=== PATIENT | male | born 1965 | race Caucasian/White ===

== ENCOUNTER → 2024-02-23 09:07 | Outpatient (REF) | payer OTHER, SELFPAY | LOC: RAD 09:07 | PROVIDERS: ATTENDING PHYSICIAN Registered Nurse | DX: I77.0 Arteriovenous fistula, acquired (principal); I77.9 Disorder of arteries and arterioles, unspecified; I65.23 Occlusion and stenosis of bilateral carotid arteries | CPT/HCPCS: 93880; 93922; 93925; 93990 ==

== ENCOUNTER 2024-03-29 11:34 | Inpatient (IN) | payer MEDICARE, SELFPAY ==
[2024-03-22 09:11] VITALS: BMI 40.6
[2024-03-22 09:51] LABS: % Basophils 0.9 % (0-2); % Eosinophils 2.8 % (0-6); % Immature Granulocytes 0.6 % (0-0.5); % Lymphocytes 19.9 % (20.5-51.1); % Monocytes 9.1 % (1.7-9.3); % Neutrophils 66.7 % (42.2-75.2); Absolute Basophils 0.1 10^3/uL (0-0.2); Absolute Eosinophils 0.2 10^3/uL (0-0.7); Absolute Lymphocytes 1.3 10^3/uL (1.2-3.4); Absolute Monocytes 0.6 10^3/uL (0.1-0.6); Absolute Neutrophils 4.4 10^3/uL (1.4-6.5); Hematocrit 34.7 % (39.0-52.0); Mean Corp Hgb Conc. 34.6 g/dL (33.0-37.0); Mean Corpuscular Hgb 30.2 pg (27.0-31.0); Mean Corpuscular Volume 87.4 fL (80.0-94.0); Mean Platelet Volume 9.3 fL (7.4-10.4); Nucleated Red Blood Cells % 0 % (-); Platelet Count 242 10^3/uL (130-400); Red Blood Cell Count 3.97 10^6/uL (4.70-6.10); Red Cell Dist. Width 14.8 % (11.5-14.5); White Blood Cell Count 6.7 10^3/uL (4.8-10.8)
[2024-03-22 10:02] LABS: INR 1.18; PT 14.9 Sec (11.4-14.6)
[2024-03-22 10:43] LABS: Blood Urea Nitrogen 44 mg/dl (9-20); Calcium 8.9 mg/dl (8.4-10.2); Carbon Dioxide 28 mmol/L (22-30); Chloride 93 mmol/L (98-107); Estimated Creatinine Clearance 16 ml/min; Glucose 122 mg/dl (70-99); Potassium 4.5 mmol/L (3.5-5.1); Sodium 133 mmol/L (135-145); eGFR 9.84
[2024-03-29] VITALS (17 sets, daily range): BP systolic 103–178; BP diastolic 60–115; BMI 40.5
[2024-03-29] MEDS: PERIDEX 0.12% ORAL RINSE 15 ML PO (07:06)
[2024-03-29] MEDS: NSS 500 IV (07:06)
[2024-03-29] MEDS: BACTROBAN NASAL 1 GRAM NASAL (07:06)
[2024-03-29 07:14] LABS: Glucose - Point of Care 116 mg/dl (70-99)
--- NOTE | 2024-03-29 08:20 | W.SUR.PREOP ---
Pre-Operative Surgical Note
-
I have examined this patient prior to the performance of the scheduled procedure.
The patient's condition is unchanged from the time of the current History and
Physical and the patient is able to undergo the scheduled procedure.
[2024-03-29] MEDS: DILAUDID 0.25 MG IV ×2 (11:30→11:50)
[2024-03-29 11:31] LABS: Glucose - Point of Care 148 mg/dl (70-99)
--- NOTE | 2024-03-29 11:43 | W.IMMPOSTOP ---
Surgical Immed Post Op Note
-
Primary Surgeon: Jamie
Assisting Surgeon: Forrest
Pre-op Diagnosis: Aneurysmal AV fistula
Post-op Diagnosis: Aneurysmal AV fistula
Procedure Performed: Resection of aneurysmal AV fistula and revision with interposition graft ([place] AcuSeal)
Anesthesia Type: General
Specimen / Cultures: Aneurysmal AVF
Estimated Blood Loss: 200 cc
Complications: None
Operative Findings: Aneurysmal AVF resected. Thrill in graft at completion of case.
--- NOTE | 2024-03-29 12:04 | OR.RPT ---
Operative Report
Operative Report
Date of Operation: 03/29/2024
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
Procedure:
1.) Resection of right upper arm aneurysmal arteriovenous fistula
2.) Revision of right upper arm arteriovenous fistula with interposition graft ([place] AcuSeal)
Surgeon: Issac Ayala III, MD
Facilities Clerk: Tyshawn Clayton MD PGY-6
Anesthesia: General
Complications: None
Estimated Blood Loss: 200 cc
History and Indications for Procedure: 59-year-old male with end-stage renal disease requiring hemodialysis. He has a right upper extremity brachiocephalic AV fistula that was created elsewhere. The fistula was aneurysmal with overlying skin
thinning and ulceration. I brought him to the operating room for resection of the aneurysmal component and revision.
Procedure in Detail: Lukas Orr was correctly identified and placed supine on the operating table. His right arm was abducted 90 degrees on an arm table. An intraoperative ultrasound was performed on the right upper extremity identifying the
aneurysmal component of the brachiocephalic arteriovenous fistula. The proximal portion of the vein adjacent to the arteriovenous anastomosis was nonaneurysmal and was marked. The more distal cephalic vein in the upper arm was also not aneurysmal
and was marked. An appropriate elliptical incision was then marked at the skin to include the aneurysm and overlying abnormal skin. After adequate induction of anesthesia the right hand and upper extremity was prepped and draped in the usual
sterile fashion. He received preoperative antibiotics. A timeout procedure was performed with the nursing and anesthesia staff confirming the patient's identity as well as the nature and laterality of the procedure.
An incision was made through the skin [place] over the aneurysmal component of the right upper extremity arteriovenous fistula. With electrocautery and careful sharp dissection we identified the proximal portion of the fistula, arteriovenous
anastomosis as well as the proximal and distal brachial artery. Proximal and distal control on the brachial artery was obtained with vessel loops.
We then continued dissection through the entire elliptical incision. This was done with sharp dissection and electrocautery. The aneurysmal portion of the fistula was circumferentially exposed and pulled up like a bucket handle. The nonaneurysmal
distal outflow vein was identified and distal control obtained with a vessel loop.
A gentle curved tunnel was created through the lateral subcutaneous tissue. A [place] AcuSeal graft was brought through the tunnel keeping proper orientation with the blue lópez on the graft. The graft was cut appropriately so that each end was 7 mm
diameter. The patient was systemically heparinized. The distal anastomosis was performed first. The vessel loops on the brachial artery were secured. A vascular clamp was placed on the outflow vein distally. The distal vein was transected
beyond the aneurysmal segment. An end-to-end anastomosis was created to the distal outflow vein using a running 6-0 Prolene suture. The proximal portion of the vein was also transected proximal to the aneurysmal segment. The AcuSeal graft was
shortened appropriately. An end-to-end anastomosis was created to the proximal portion of the vein using a running 6-0 Prolene suture. Prior to the completion of the anastomosis the vessel loops on the brachial artery were temporarily released.
The area under the anastomosis and into the graft was flushed with heparinized saline solution. The anastomosis was completed. The vessel loops and the distal clamp were released. There was a excellent thrill easily palpable within the graft and
distal outflow vein. Both suture lines were closely inspected for hemostasis which was achieved.
Protamine was administered. The wound was irrigated with copious amounts of warm saline solution. Hemostasis was achieved in the wound bed. The wound was then closed in layers and sterile dressings were applied. The course of the AcuSeal graft
in the upper arm was marked at the skin level.
The patient tolerated the procedure well was taken to the recovery room in good condition.
Attestation: I was present and responsible for the entire procedure
Signed:
Issac Ayala III, MD
[facility]
[phone] (cell)
--- NOTE | 2024-03-29 14:00 | PTCARENOTE ---
Pt received from the PACU via bed. Transport was w/o incident. Pt is AAOx3, HRR, lungs are clear, resp. easy. Pt's right arm with Revised AV fistula, incision intact. Fistula with a Positive Bruit and Thrill. Pt able to move arm, wiggle fingers.
Radial pulse strong and positive. VSS, Pt is afebrile. Pt instructed on plan of care. Pt refusing to have Accuchecks performed and currently is demanding a regular diet be ordered. Pt's current ordered diet is 2000cal ada renal diet. Attending MD
notified of Pt's demands. Pt verbalized understanding of his plan of care. Call griffin is within reach.
.
--- NOTE | 2024-03-29 15:34 | W.CON.NEPH ---
Consultation
-
Date/Time Consultation Requested: 03/29/2024 11 AM
Date/Time Consultation Performed: 03/29/2024 330 pm
Requesting Provider: Dr. Ayala
Performing Provider: Dr. Dahl
Reason for Consultation: End-stage renal disease
Medical History
-
Chief Complaint: ESRD
History of Present Illness:
Patient is a 59-year-old male with a past medical history of end-stage renal disease who dialyzes Monday and Saturdays at [facility]. He has been on dialysis for 7 years in the setting of his diabetic nephropathy. His dry
weight is 115.5 kg and states that he often goes UF's as high as 4-1/2 kg. His right upper extremity AV fistula has been operational for 7 years. He has a history of diabetes and is maintained on glipizide. His diabetes complications include
neuropathy retinopathy and nephropathy. He is maintained on sevelamer for his hyperphosphatemia and his hypertension has been managed on the combination of hydralazine carvedilol and amlodipine. He presented to the hospital for elective resection
of an aneurysmal AV fistula with interposition of AV graft. Nephrology was consulted for his end-stage renal disease manage
Past Medical History
ESRD x 7 years due to diabetic nephropathy
Hypertension
History of DVT
Cholecystectomy
Depression
Diabetes
Hyperphosphatemia
TIA
Right upper extremity AV fistula
Social History
Tobacco: Former Smoker
Alcohol: None
Drug: None
Personal:
Family History
no CKD
Allergies / Home Medications
Allergy/AdvReac Type Severity Reaction Status Date / Time
No Known Allergies Allergy Verified 03/29/24 06:29
�Medication �Instructions �Recorded �Confirmed �Type
amlodipine 10 mg tablet 10 mg PO DAILY 03/20/24 03/29/24 History
apixaban 5 mg tablet (Eliquis) 5 mg PO BID 03/20/24 03/29/24 History
carvedilol 25 mg tablet 25 mg PO BID 03/20/24 03/29/24 History
cholecalciferol (vitamin D3) 50 50 mcg PO DAILY 03/20/24 03/29/24 History
mcg (2,000 unit) tablet (Vitamin
D3)
clopidogrel 75 mg tablet 75 mg PO DAILY 03/20/24 03/29/24 History
escitalopram oxalate 20 mg tablet 40 mg PO DAILY 03/20/24 03/29/24 History
glipizide 5 mg tablet, extended 5 mg PO DAILY 03/20/24 03/29/24 History
release 24 hr
hydralazine 25 mg tablet 25 mg PO BID HTN 03/20/24 03/29/24 History
melatonin 10 mg tablet 15 - 20 mg PO HS insomnia 03/20/24 03/29/24 History
sevelamer carbonate 800 mg tablet 1,600 mg PO DIRECTED 03/20/24 03/29/24 History
sevelamer carbonate 800 mg tablet 3,200 - 4,000 mg PO BID 03/20/24 03/29/24 History
torsemide 20 mg tablet 60 mg PO BID 03/20/24 03/29/24 History
Review of Systems
-
History Source: Patient
All other systems: Negative unless noted
Constitutional: No Symptoms
EENT: Other (Diabetic retinopathy with some left visual field impairment)
Respiratory: No Symptoms
Cardiac: No Symptoms
Abdomen/GI: No Symptoms
: No Symptoms and Other (He still makes urine)
Musculoskeletal: Other (Toe amputation)
Skin: No Symptoms
Neurological: Other (Neuropathy in feet)
Endocrine: No Symptoms
Hematologic/Lymphatic: No Symptoms
Physical Exam
Vital Signs
Vital Signs
Temp Pulse Resp BP Pulse Ox
97.7 F 79 18 169/84 95
03/29/24 14:03/29/24 14:03/29/24 14:03/29/24 14:03/29/24 14:07
Lab Results
WBC 6.7 10^3/uL (4.8-10.8) 03/22/24 09:24
RBC 3.97 10^6/uL (4.70-6.10) L 03/22/24 09:24
Hgb 12.0 g/dL (13.0-18.0) L 03/22/24 09:24
Hct 34.7 % (39.0-52.0) L 03/22/24 09:24
Plt Count 242 10^3/uL (130-400) 03/22/24 09:24
Sodium 133 mmol/L (135-145) L 03/22/24 09:24
Potassium 4.5 mmol/L (3.5-5.1) 03/22/24 09:24
Chloride 93 mmol/L (98-107) L 03/22/24 09:24
Carbon Dioxide 28 mmol/L (22-30) 03/22/24 09:24
BUN 44 mg/dl (9-20) H 03/22/24 09:24
Creatinine 6.1 mg/dL (0.7-1.3) H* 03/22/24 09:24
eGFR 9.84 03/22/24 09:24
Glucose 122 mg/dl (70-99) H 03/22/24 09:24
Calcium 8.9 mg/dl (8.4-10.2) 03/22/24 09:24
Physical Exam
General: AOx3, Nontoxic , NAD,obese
HEENT: PERRL, EOMI, Anicteric, Conjunctivae Clear, Ear/Nose Intact, Hearing Normal, Oropharynx Clear/Moist, Dentition impaired, Facial Symmetry, Neck Supple, Neck: Trachea Midline, No JVD and No Thyromegaly, no Bruits
Respiratory: Clear to auscultation bilaterally with normal lung exersion
Cardiac: S1/S2 and Regular Rate/Rhythm
Breast: Deferred by me
Abdomen: Soft, Nontender, Nondistended, Normal Bowel Sounds and No Hepatosplenomegaly
Rectal: Deferred by Provider
Genito-urinary: No Costovertebral Tenderness
Extremities: No Clubbing, No Cyanosis and No Edema
Skin: No Rash or open lesions
Neuro: Nonfocal/Grossly Intact, CN II-XII (Intact), some neurosensory deficits on the plantar aspects of the feet and Strength (Musculoskeletal exam 5 out of 5 both upper and lower extremities)
Hematologic/Lymphatic: No Cervical Lymphadenopathy, No Submandibular Lymphadenopathy and No Supraclavicular Lymphadenopathy
Psych: Mood/affect pleasant, Insight/judgement good and Appropriate
Vascular: plus 1 pedal and radial pulses
Vascular Access: AVF (Right upper extremity AV fistula surgical site appears clean interposition graft site with good thrill and bruit)
Data Reviewed
-
Radiology: Image Personally Visualized and interpreted (Chest x-ray from 03/22/2024 personally reviewed clear pulmonary sanders without evidence of infiltrate or pneumonic process)
Medical Tests (Nuc Med, Echo etc): Discussed with Physician (Discussion with vascular surgeon reviewing images and surgical findings of revision of right upper extremity AV for) and Other (EKG report personally reviewed sinus rhythm with right
bundle branch and 60 beats per)
Labs: Labs Reviewed by me ([facility])
Assessment/Plan
-
Impression:
ESRD
Status post revision of AV fistula aneurysm with graft placement interposition
Hypertension
Hyperphosphatemia
Diabetes
History of TIA
History of DVT on chronic anticoagulation
Plan:
-Dialysis will be performed tomorrow to test integrity of new access, orders provided
-Hypertension management will continue on current antihypertensives
-Maintain sevelamer with meals in setting of hyperphosphatemia
-Appropriate dietary and fluid restrictions ordered for ESRD
--- NOTE | 2024-03-29 16:17 | W.PA-PDMP ---
[place]-PDMP
-
Checked the [place]- Prescription Drug Monitoring Program website, no red flags identified; safe to proceed with prescription.
--- NOTE | 2024-03-29 16:17 | W.PN.UPDATE ---
Update Note
Progress Note Update
Patient refusing low-sodium or carb controlled diet, provided patient education and importance of maintaining appropriate diet given his comorbidities. Patient verbalizes understanding of teaching but still insistent on changing to regular diet as
he refuses to restrict sodium or carb. Given patient's refusal will change diet to regular. Additionally, I was told by nursing staff he was also refusing [id number] glucose monitoring, again provided patient education importance of tight blood
sugar control following surgical intervention and the importance of monitoring blood sugar. He states he will be agreeable to blood glucose monitoring.
--- NOTE | 2024-03-29 17:00 | W.DS.TRANS ---
DC Summary - Neurosurgery Research Director
-
Discharge Instructions:
Discharge Diagnosis/Procedures Resection of right upper arm aneurysmal
arteriovenous fistula. Revision of right upper
arm arteriovenous fistula with interposition
graft.
Diet As tolerated,2 Gram Sodium,Low Cholesterol
Activity No strenuous activity
Driving Restrictions No driving for 1 week
Bathing Restrictions OK to Shower
Instructions:
Stand-Alone Forms: DC Instr - Vascular OR
Changes to Home Medications: Yes
Discharge Medications:
DC Medications w/original date entered in [employer]
amlodipine 10 mg tablet 10 mg PO DAILY 03/20/24
apixaban 5 mg tablet (Eliquis) 5 mg PO BID 03/20/24
carvedilol 25 mg tablet 25 mg PO BID 03/20/24
cholecalciferol (vitamin D3) 50 mcg (2,000 unit) tablet (Vitamin D3) 50 mcg PO DAILY 03/20/24
clopidogrel 75 mg tablet 75 mg PO DAILY 03/20/24
escitalopram oxalate 20 mg tablet 40 mg PO DAILY 03/20/24
glipizide 5 mg tablet, extended release 24 hr 5 mg PO DAILY 03/20/24
hydralazine 25 mg tablet 25 mg PO BID HTN 03/20/24
melatonin 10 mg tablet 15 - 20 mg PO HS insomnia 03/20/24
sevelamer carbonate 800 mg tablet 1,600 mg PO DIRECTED 03/20/24
sevelamer carbonate 800 mg tablet 3,200 - 4,000 mg PO BID 03/20/24
torsemide 20 mg tablet 60 mg PO BID 03/20/24
oxycodone 5 mg tablet 5 mg PO Q8HPRN PRN moderate pain #5 tabs 03/29/24
Home Medication Changes
Added:
oxycodone 5 mg tablet 5 mg PO Q8HPRN PRN moderate pain #5 tabs 03/29/24
Pending Results: No
--- NOTE | 2024-03-29 18:15 | PTCARENOTE ---
Pt is currently refusing all care. This RN went in to Pt's room to administer Torsemide and Renvela. Pt starting screaming and stated ' I want to take all my meds at once', And I want a large cup of water, take that small cup with You'. 'I'm not
going to be bothered by people coming into my room all through the night'. At that time this nurse attempted to instruct on the importance of taking his Torsemide as ordered. Pt demanded 'get out'. This RN left Pt's room and Notified Nursing
Coordinator to help with Pt's outburst and the fact that he is uncooperative.
[2024-03-29] MEDS: APRESOLINE 25 MG PO (19:57)
[2024-03-29] MEDS: COREG 25 MG PO (19:57)
[2024-03-29 21:41] LABS: Glucose - Point of Care 328 mg/dl (70-99)
[2024-03-30] MEDS: DILAUDID 0.5 MG IV (00:51)
[2024-03-30 03:45] VITALS: BP 175/83
[2024-03-30 05:07] VITALS: BMI 41.0
[2024-03-30 07:05] VITALS: BP 157/83
--- NOTE | 2024-03-30 07:23 | W.PN.VS ---
Today's Communication / Plan
-
as above
Assessment/Plan
-
pod 1 s/p AVF revision with accuseal graft
Dialysis this am then ok to d/c home
Subjective Data
-
Date of Service: March 30, 2024
No complaints this am
Objective Data
-
Vital Signs
Temp Pulse Resp BP Pulse Ox
98.5 F 77 20 175/83 97
03/30/24 03:45 03/30/24 03:45 03/30/24 03:45 03/30/24 03:45 03/30/24 03:45
Intake and Output
03/29/24 03/30/24 03/31/24
06:59 06:59 06:59
Intake Total 1779
Balance 1779
Intake:
Oral fluids 1680 / 1680
IV fluids (Total) 100 / 100
nss 100 / 100
Other:
Number of approximated MODERATE 3
amounts of urine
Number of approximated LARGE 1
amounts of urine
Calcium 8.9 mg/dl (8.4-10.2) 03/22/24 09:24
Physical Exam
-
NAD
RUE incision c/d/i
+thrill over accuseal graft
[2024-03-30 07:32] LABS: Hematocrit 30.6 % (39.0-52.0); Hemoglobin 10.7 g/dL (13.0-18.0); Mean Corpuscular Volume 85.7 fL (80.0-94.0); Mean Platelet Volume 9.4 fL (7.4-10.4); Platelet Count 262 10^3/uL (130-400); Red Blood Cell Count 3.57 10^6/uL (4.70-6.10); Red Cell Dist. Width 14.8 % (11.5-14.5); White Blood Cell Count 9.6 10^3/uL (4.8-10.8)
[2024-03-30 07:33] LABS: INR 1.17; PT 14.8 Sec (11.4-14.6)
[2024-03-30 07:34] LABS: APTT 33.4 Sec (23.4-35.0)
[2024-03-30 07:54] LABS: Blood Urea Nitrogen 70 mg/dl (9-20); Calcium 8.5 mg/dl (8.4-10.2); Carbon Dioxide 27 mmol/L (22-30); Chloride 93 mmol/L (98-107); Estimated Creatinine Clearance 13 ml/min; Glucose 150 mg/dl (70-99); Potassium 4.5 mmol/L (3.5-5.1); Sodium 132 mmol/L (135-145); eGFR 7.56
[2024-03-30 08:17] LABS: Glucose - Point of Care 175 mg/dl (70-99)
--- NOTE | 2024-03-30 08:48 | W.PN.NEPH.HD ---
Assessment
-
Patient seen on dialysis
Systolic blood pressure 148 current UF
New AV graft interposition following AV fistula aneurysm resection with good function
For discharge after dialysis
Progress Note - Hemodialysis
-
Date of Service: March 30, 2024
Duration: 30 minutes and 3 hours
Potassium Bath: 2
Calcium Bath: 2.5
Opti-Dialyzer: 160
Ultrafiltration: Other (3.5kg)
Blood Flow: 400
Dialysate Flow: 600
Heparin: None
EPO: none
[2024-03-30] MEDS: APRESOLINE PO (09:15)
[2024-03-30] MEDS: COREG PO (09:15)
--- NOTE | 2024-03-30 10:34 | CM ---
Reviewed the chart notes and spoke with the patient at bedside on HD. The patient resides with his spouse in a first floor apartment with three steps to enter. The patient reports on DME is a cane. Patient received HD at [facility] in
[place]. The patient reports having VN, but could not recall name of the agency, no SNF. The patient confirmed his pharmacy of choice is the [facility]. The patient's spouse will provide transportation home today after HD. CM
continues to be available to patient/family and is monitoring medical plan for needs at discharge.
Plan: Discharge to home after HD today.
[2024-03-30 11:10] VITALS: BP 159/69
--- NOTE | 2024-03-30 12:26 | PTCARENOTE ---
Patient discharged to home at this time. Patient refused all medications this AM- stated he would take them when he gets home. All discharge instructions reviewed.
== END 2024-03-30 12:31 | disposition home or self-care (01) | DRG 252 ==
LOC: 2 SOUTH 11:34
PROVIDERS: Nurse Practitioner; ADMITTING PHYSICIAN Surgery Vascular Surgery; CONSULT PHYSICIAN Specialist; FAMILY PHYSICIAN Nurse Practitioner Primary Care
PROC: 03170JD Bypass Right Brachial Artery to Upper Arm Vein with Synthetic Substitute, Open Approach (ICD-10-PCS; 2024-03-29)
PROC: 03L70ZZ Occlusion of Right Brachial Artery, Open Approach (ICD-10-PCS; 2024-03-29)
PROC: 5A1D70Z Performance of Urinary Filtration, Intermittent, Less than 6 Hours Per Day (ICD-10-PCS; 2024-03-29)
DX: T82.898A Other specified complication of vascular prosthetic devices, implants and grafts, initial encounter (principal); N18.6 End stage renal disease; I12.0 Hypertensive chronic kidney disease with stage 5 chronic kidney disease or end stage renal disease; E11.319 Type 2 diabetes mellitus with unspecified diabetic retinopathy without macular edema; E11.22 Type 2 diabetes mellitus with diabetic chronic kidney disease; E11.51 Type 2 diabetes mellitus with diabetic peripheral angiopathy without gangrene; F32.A Depression, unspecified; Z95.820 Peripheral vascular angioplasty status with implants and grafts; Z99.2 Dependence on renal dialysis; E83.39 Other disorders of phosphorus metabolism; G47.00 Insomnia, unspecified; Y71.2 Prosthetic and other implants, materials and accessory cardiovascular devices associated with adverse incidents; Z79.01 Long term (current) use of anticoagulants; Z79.02 Long term (current) use of antithrombotics/antiplatelets; Z79.84 Long term (current) use of oral hypoglycemic drugs; Z79.899 Other long term (current) drug therapy; Z86.73 Personal history of transient ischemic attack (TIA), and cerebral infarction without residual deficits; Z86.718 Personal history of other venous thrombosis and embolism; Z87.891 Personal history of nicotine dependence; Z90.49 Acquired absence of other specified parts of digestive tract
CPT/HCPCS: 88304; 36415; 36832; 71046; 80048; 82962; 85025; 85027; 85610; 85730; 86850; 86900; 86901; 87070; 93005; G0257

== ENCOUNTER 2024-04-04 17:26 | Day surgery (SDC) | payer MEDICARE, SELFPAY ==
[2024-04-04 07:52] VITALS: BP 193/88
--- NOTE | 2024-04-04 08:39 | ED.GENMED ---
History of Present Illness
General
Chief Complaint: Post Operative Problem(s)
Source: patient
Exam Limitations: none
Time Seen by Provider: 04/04/24 07:58
History of Present Illness
History of Present Illness:
Patient on dialysis. Had a aneurysmal repair/fistula revision on March 29. Graft was used the next day and 2 days ago. However today upon starting dialysis he immediately noted an issue with pain followed by swelling. Dialysis was stopped after
30 minutes. Complaining of swelling and some pain. No distal numbness or tingling.
Past History
Past History
ED Past Medical History: CHF, HTN, Hypercholesterolemia, NIDDM and Other (Renal failure)
ED Past Surgical History: Cholecystectomy, Orthopedic and Other (Fistula/cataract extraction)
Review of Systems
Review of Systems
All Other Systems: Not applicable
Constitutional: Denies fever or chills
Phy Exam
Physical Exam
Physical Exam:
GENERAL: Alert and oriented in no apparent distress
EYE: Orbits normal.
CARDIAC: Regular rate and rhythm without any obvious murmurs.
LUNGS: Clear breath sounds,normal
ABDOMEN: Soft, without focal tenderness or distention
NEUROLOGICAL: Alert and oriented , grossly non-focal
SKIN: Warm and dry, well-healing surgical incision to the right arm at the fistula site.
MUSCULOSKELETAL: Significant swelling of the right arm. Pulse present however no thrill. Good distal pulses and color. Capillary refill normal.
PSYCH: Normal and appropriate interaction.
Course
Orders/Labs/Results
Orders:
Orders
04/04/24 08:35
US Hemodialysis Graft Urgent
Reason For Exam: Swelling pain during dialysis
04/04/24 10:27
Hydrocodone 5/APAP 325 [[place] 5/325] 1 tablet PO NOW STA
04/04/24 13:00
Consult Interventional Radiology [IRAD CONSULT] Urgent
Consulting Provider: Andres Gaffney
Was physician already notified: Yes
Reason for Consult/Procedure: dialysis cath
Acknowledgement that appropriate orders are entered: Yes
Vital Signs
Initial and Last Documented VS:
Initial Vital Signs
Temp Pulse Resp BP Pulse Ox
97.9 F 76 18 193/88 99
04/04/24 07:52 04/04/24 07:52 04/04/24 07:52 04/04/24 07:52 04/04/24 07:52
Last Documented Vital Signs
Temp Pulse Resp BP Pulse Ox
97.9 F 75 16 166/75 98
04/04/24 07:52 04/04/24 10:46 04/04/24 10:46 04/04/24 10:46 04/04/24 10:46
MDM/Problems Addressed
Differential Diagnosis Includes:
Fistula issue.
MDM/Problems Addressed:
Fistula issue. Discussed with vascular. Contacted immediately after evaluating the patient. Ultrasound and they will evaluate
*Critical Care Note
Total Time (30-74mins, 75-104mins- exclusive of procedures): 15
Data Reviewed
Review of Other/Old Records Reveals: Labs, Records and Operative Reports
ED Attending Note
-
Portions of this chart may have been created with voice recognition software.� Occasional wrong word or��sound alike� substitutions may have occurred due to the inherent limitations of voice recognition software.
Discharge Plan
Departure
Discharge Problem:
Hematoma right arm, Near AV fistula site, History of renal failure
Instructions: BLOOD PRESSURE, Hematoma
Prescriptions:
No Action
carvedilol 25 mg Tablet
25 mg PO BID
torsemide 20 mg Tablet
60 mg PO BID
glipizide 5 mg Tablet Extended Release 24hr
5 mg PO DAILY
hydralazine 25 mg Tablet
25 mg PO BID
Rx Instructions:
SBP>135
clopidogrel 75 mg Tablet
75 mg PO DAILY
amlodipine 10 mg Tablet
10 mg PO DAILY
escitalopram oxalate 20 mg Tablet
40 mg PO DAILY
sevelamer carbonate 800 mg Tablet
3,200 - 4,000 mg PO BID
Rx Instructions:
w/ meals
sevelamer carbonate 800 mg Tablet
1,600 mg PO DIRECTED
Rx Instructions:
w/ snacks
cholecalciferol (vitamin D3) [Vitamin D3] 50 mcg (2,000 unit) Tablet
50 mcg PO DAILY
Eliquis 5 mg Tablet
5 mg PO BID
melatonin 10 mg Tablet
15 - 20 mg PO HS
oxycodone 5 mg Tablet
5 mg PO Q8HPRN PRN (Reason: moderate pain) Qty: 5 0RF
Referrals:
Stephani Alonzo CRNP [Family Provider] -
Activity Restrictions/Additional Instructions:
Rest of the upper arm. Keep elevated. Follow-up close with the vascular surgeons
Return sooner with increased pain increased swelling numbness tingling weakness or any other concerning symptoms
Interventions
Interventions:
*Risk Screen - Suicide Last Done: 04/04/24 07:52
*General Assessment Last Done: 04/04/24 07:52
*Neglect/Abuse Screening Last Done: 04/04/24 07:52
ED- Fall Risk Assessment Last Done: 04/04/24 09:53
*ED COVID-19 Vaccine History Last Done: 04/04/24 09:54
ED-Skin Assessment Last Done: 04/04/24 09:00
Discharge Date and Time
Print Language: [id number]
[2024-04-04] MEDS: NORCO 5/325 1 TABLET PO (10:44)
[2024-04-04 10:46] VITALS: BP 166/75
--- NOTE | 2024-04-04 11:35 | CON.VAS ---
Consultation
Consultation Request
Date/Time Consultation Performed: 04/04/24 1135
Requesting Provider: Sin Hdez MD
Performing Provider: Ellie Miles NP-C for Hugo Benitez MD
Reason for Consultation: Edema around AV fistula
Medical History
-
Chief Complaint: Edema around AV fistula
History of Present Illness:
This is a 59-year-old male with end-stage renal disease on hemodialysis, who recently underwent right upper extremity aneurysmal fistula revision with interposition early access AcuSeal graft with Dr. Issac Ayala III on 03/29/24. He underwent
hemodialysis on Monday and Monday without difficulty. However, notes today at HD RN had difficulty cannulating, but were able to do so and started dialysis. However his arm started swelling up. Dialysis was stopped and sent to the emergency
room. He states session lasted about 30 minutes. Patient notes some discomfort and swelling since the dialysis. No severe pain in the hand. No weakness or coolness.
On exam/right upper extremity incision is clean dry and intact. Graft with palpable pulse/pulsatility/thrill. Excellent thrill in the outflow vein more proximally in the upper arm. He does have a palpable hematoma/fullness in the arm. His arm is
still soft however, compartments all soft. Hand is pink and warm and well-perfused.
Past Medical History
Past Medical History: HTN, NIDDM, Renal Failure and Other (TIA and PVD)
Past Surgical History: Cholecystectomy and Other (Fistulogram, bilateral cataracts, dilatation, angiogram, SFA right angioplasty, right brachiocephalic fistula)
Social History
Tobacco: Former Smoker
Allergies / Home Medications
Allergy/AdvReac Type Severity Reaction Status Date / Time
No Known Allergies Allergy Verified 04/04/24 07:52
�Medication �Instructions �Recorded �Confirmed �Type
amlodipine 10 mg tablet 10 mg PO DAILY Blood Pressure 03/20/24 03/29/24 History
apixaban 5 mg tablet (Eliquis) 5 mg PO BID Blood Clot 03/20/24 03/29/24 History
Prevention/Tx
carvedilol 25 mg tablet 25 mg PO BID Blood Pressure 03/20/24 03/29/24 History
cholecalciferol (vitamin D3) 50 50 mcg PO DAILY Supplement 03/20/24 03/29/24 History
mcg (2,000 unit) tablet (Vitamin
D3)
clopidogrel 75 mg tablet 75 mg PO DAILY Blood Clot 03/20/24 03/29/24 History
Prevention/Tx
escitalopram oxalate 20 mg tablet 40 mg PO DAILY Depression 03/20/24 03/29/24 History
glipizide 5 mg tablet, extended 5 mg PO DAILY Diabetes 03/20/24 03/29/24 History
release 24 hr
hydralazine 25 mg tablet 25 mg PO BID HTN 03/20/24 03/29/24 History
melatonin 10 mg tablet 15 - 20 mg PO HS insomnia 03/20/24 03/29/24 History
sevelamer carbonate 800 mg tablet 1,600 mg PO DIRECTED 03/20/24 03/29/24 History
sevelamer carbonate 800 mg tablet 3,200 - 4,000 mg PO BID 03/20/24 03/29/24 History
hyperphosphatemia
torsemide 20 mg tablet 60 mg PO BID Fluid 03/20/24 03/29/24 History
Retention/Swelling
oxycodone 5 mg tablet 5 mg PO Q8HPRN PRN moderate pain 03/29/24 Rx
#5 tabs
Review of Systems
-
History Source: Patient
Constitutional: Reports No Symptoms
EENT: Reports No Symptoms
Respiratory: Reports No Symptoms
Cardiac: Reports No Symptoms
Abdomen/GI: Reports No Symptoms
: Reports No Symptoms
Musculoskeletal: Reports Edema (Edema at RUE surrounding AV fistula )
Skin: Reports No Symptoms
Neurological: Reports No Symptoms
Endocrine: Reports No Symptoms
Physical Exam
Vital Signs
Temp Pulse Resp BP Pulse Ox
97.9 F 75 16 166/75 98
04/04/24 07:52 04/04/24 10:46 04/04/24 10:46 04/04/24 10:46 04/04/24 10:46
Physical Exam
General: No Apparent Distress and Comfortable
HEENT: Normocephalic, Anicteric and Atraumatic
Respiratory: Non Labored Respirations
Cardiac: Negative JVD
GI: Soft, Non Tender and Non Distended
Musculoskeletal: Other (RUE Graft with palpable pulse/pulsatility/thrill. Excellent thrill in the outflow vein more proximally in the upper arm. He does have a palpable hematoma/fullness in the arm. His arm is still soft however, compartments all
soft. Hand is pink and warm and well-perfused.)
Skin: Warm and Dry
Neuro: AO x 3
Psych: Calm
Assessment / Plan
-
Assessment: 59 year old male s/p right upper extremity aneurysmal fistula revision with interposition early access AcuSeal graft reports to ED today following a 30-minute unsuccessful HD session which was stopped due to swelling and pain at AV
fistula site.
Plan:
Duplex reviewed. He has a large hematoma, and some fluid around the site of dialysis puncture. No active extravasation. Stenosis seen in the outflow vein distal to the AV graft. At this point given significant swelling in the arm recommend
resting the AV graft. Recommend tunneled dialysis catheter placement for a couple weeks. Once the swelling is reduced in the arm, then we can perform fistulogram to angioplasty any outflow vein stenosis and then graft can be accessed. Plan
discussed with the emergency room provider.
--- NOTE | 2024-04-04 11:55 | W.PN.UPDATE ---
Update Note
Progress Note Update
Seen and evaluated in the emergency room. Full consultation to follow. 59-year-old male end-stage renal disease on hemodialysis. Recent right upper extremity aneurysmal fistula revision with interposition early access AcuSeal graft. Underwent
hemodialysis today. Notes that the difficulty cannulating, but were able to do so and started dialysis. However his arm started swelling up. Dialysis was stopped and sent to the emergency room. Patient notes some discomfort and swelling since
the dialysis. No severe pain in the hand. No weakness. When I asked if he had any prior swelling prior to today he noted minimal. The AV graft was accessed without difficulty prior to this.
On exam/right upper extremity incision is clean dry and intact. Graft with palpable pulse/pulsatility/thrill. Excellent thrill in the outflow vein more proximally in the upper arm. He does have a palpable hematoma/fullness in the arm. His arm is
still soft however, compartments all soft. Hand is pink and warm and well-perfused.
Plan/I reviewed duplex he completed today. He has a large hematoma, and some fluid around the site of dialysis puncture. No active extravasation. Stenosis seen in the outflow vein distal to the AV graft. At this point given significant swelling
in the arm I recommend resting the AV graft. Recommend tunneled dialysis catheter placement for a couple weeks. Once the swelling is reduced in the arm, then we can perform fistulogram to angioplasty any outflow vein stenosis and then graft can be
accessed. Plan discussed with the emergency room provider.
[2024-04-04 14:40] VITALS: BP 186/87; BMI 41.5
--- NOTE | 2024-04-04 16:35 | ED.GENMED ---
History of Present Illness
General
Chief Complaint: Post Operative Problem(s)
Time Seen by Provider: 04/04/24 07:58
History of Present Illness
History of Present Illness:
See principal provider's note
Past History
Past History
ED Past Medical History: CHF, HTN, Hypercholesterolemia, NIDDM and Other (Renal failure)
ED Past Surgical History: Cholecystectomy, Orthopedic and Other (Fistula/cataract extraction)
Phy Exam
Physical Exam
Physical Exam:
See principal provider's note
Course
Orders/Labs/Results
Orders:
Orders
04/04/24
DX DVT Prevention Inpt Video Routine
04/04/24 Breakfast
2000 calorie (17 carb) Diabetic
At Your Request: Non-Participating
04/04/24 08:35
US Hemodialysis Graft Urgent
Reason For Exam: Swelling pain during dialysis
04/04/24 10:27
Hydrocodone 5/APAP 325 [Lignum 5/325] 1 tablet PO NOW STA
04/04/24 13:00
Consult Interventional Radiology [IRAD CONSULT] Urgent
Consulting Provider: Andres Gaffney
Was physician already notified: Yes
Reason for Consult/Procedure: dialysis cath
Acknowledgement that appropriate orders are entered: Yes
04/04/24 16:33
HYDROmorphone [Dilaudid] 1 mg IV NOW STA
04/04/24 16:36
Ondansetron Injectable [Zofran] 4 mg IV NOW STA
04/04/24 16:46
Complete Blood Count/With Diff Urgent
Comprehensive Metabolic Panel Urgent
PTT Urgent
Prothrombin Time Urgent
04/04/24 17:04
Hemodialysis treatment As Directed
Treatment date:: 04/05/24
Treatment type: Hemodialysis
Ultrafiltration (kg): 3.5-4kg
Treatment time (duration): 3 hours 30 minutes
Use dialysis access:: Tunneled Cath
Dialyzer:: Optiflux 160
Blood flow rate minimum: 300
Blood flow rate maximum: 400
Dialysis flow rate: 600 mL/min
Dialysate temperature: 37 degrees Celsius
Sodium (Na): 137
Potassium (K): 2
Calcium (Ca): 2.5
Bicarbonate (HCO3): 37
04/04/24 17:08
Admit/Transfer Patient As Directed
Co-Sign Provider:
Level of Care: Observation services
Assign to:: Medical/Surgical
Physician / Group: maria l
Diagnosis: fistula hematoma
PRN Pain Medication Management As Directed
May give lesser potent ordered pain med per pt: Yes
preference::
Protocol:: Medication orders for pain may be administered in a
manner that supports deferring to patient preference
when the pt is:
- Requesting an ordered lesser potent pain medication.
Least to most potent pain medications are defined
as: acetaminophen < NSAID < tramadol < opioids
(morphine, oxycodone, hydromorphone).
- Requesting a lesser dose of the same medication IF
ORDERED.
- Requesting a less intrusive route of administration
if both routes are prescribed by the provider (PO <
IV).
04/04/24 17:10
Code Status As Directed
Resuscitation Status: Full Code
04/04/24 17:17
Amlodipine [Norvasc] 10 mg PO NOW STA
Carvedilol [Coreg] 25 mg PO NOW STA
04/04/24 18:52
Acetaminophen [Tylenol] 650 mg PO Q4HPRN PRN
Bisacodyl [Dulcolax] 10 mg RECTAL [id number] PRN
Dextrose 50%-Water [Dextrose 50% Syringe] 12.5 grams IV [id number] PRN
Docusate W/Senna [Senokot-S] 1 tablet PO BIDPRN PRN
Glucagon [GlucaGen] 1 mg IM PRN PRN
Polyethylene Glycol Powder [Miralax] 17 grams PO DAILYPRN PRN
Sevelamer Carbonate [Renvela] 1,600 mg PO PRN PRN
Sevelamer Carbonate [Renvela] 3,200 mg PO MEALS
04/04/24 18:52
NEPHROLOGY CONSULT Routine
Consulting Provider: Roney Dahl V.
Was physician already notified: Yes
Vascular Surgery Consult Routine
Consulting Provider: Hugo Benitez
Was physician already notified: Yes
Activity As Directed
Activity Level: As Tolerated
Bedside Glucose Monitoring As Directed
Frequency: AC&HS
Additional Instructions:: Change to q6h if pt on TPN, tube feeding or not eating
Intake/ Output As Directed
Frequency: Per unit guidelines
Pneumatic Compression Sleeves As Directed
Type: Knee high
Vital Signs As Directed
Frequency: Per unit guidelines
Weight As Directed
Frequency: Daily
DX Deep Vein Thrombosis Video Routine
04/04/24 19:00
Flush (0.9% Sodium Chloride) [Flush (Nss)] See Dose Instructions IV PER PROTOCOL
Torsemide [Demadex] 60 mg PO BID AT 0800,1600
04/04/24 20:00
HydrALAZINE [Apresoline] 25 mg PO BID
04/04/24 20:28
MRSA Screen Routine
ZAINAB Source: Nose
Specimen Description:
04/04/24 22:00
Melatonin 15 mg PO HS
04/05/24 Breakfast
NPO
Reason for opting out of [employer] order writing: Provider Decision
Allow oral meds: Yes
Allow clear liquids: Sips of Clears
04/05/24 07:30
Insulin Aspart Corrective Low [Novolog Flexpen-Low Resistance] See Protocol SC AC
04/05/24 08:00
Carvedilol [Coreg] 25 mg PO BID
Citalopram [Celexa] 40 mg PO DAILY
Clopidogrel Bisulfate [Plavix] 75 mg PO DAILY
Epoetin Ruy-Epbx [Retacrit] 4,000 units IV HD-ONCE ONE
Glipizide Extended Release [Glucotrol Xl (Extended Release)] 5 mg PO DAILY
Heparin See Dose Instructions INTRACATH HD-ONCE ONE
Mannitol 25% 12.5 grams IV HD-Q1HPRN PRN
Sodium Chloride [Sodium Chloride 4 Meq/ml For Hemodialysis] 10 ml IV HD-Q1HPRN PRN
04/05/24 09:53
Basic Metabolic Panel IN AM
Complete Blood Count/No Diff IN AM
Glycohemoglobin (HgbA1c) IN AM
Hepatitis C Antibody IN AM
04/05/24 Lunch
1800 calorie (15 carb) Diabetic
At Your Request: Full Participation
Reason for opting out of [employer] order writing: Provider Decision
Regular
At Your Request: Full Participation
Reason for opting out of [employer] order writing: Provider Decision
Amlodipine [Norvasc] 10 mg PO DAILY
04/05/24 10:35
CeFAZolin 2 GRAM [Ancef] 2 grams in 10 ml IV NOW
04/05/24 10:44
Heparin 10,000 units .ROUTE .STK-MED ONE
Lidocaine 2% [Xylocaine 2% Mdv] 20 ml .ROUTE .STK-MED ONE
Lidocaine 2%/Epinephrine [Xylocaine 2% with Epinephrine] 20 ml .ROUTE .STK-MED ONE
04/05/24 11:31
Lorazepam [Ativan] 2 mg .ROUTE .STK-MED ONE
04/05/24 11:37
Change in Level of Care [Level of Care Change] As Directed
Level of Care: Post Proc/Surg Recovery
Reason for Overnight Stay: Pulmonary Desaturation
04/05/24 11:45
Fentanyl Citrate/Pf [Sublimaze] 100 mcg .ROUTE .STK-MED ONE
Midazolam HCl [Versed] 2 mg .ROUTE .STK-MED ONE
04/05/24 13:41
Discharge Patient As Directed
Discharge patient after: HD today
Do you have a designated caregiver: Yes-same as spokesperson
04/05/24 18:00
Cephalexin Monohydrate [Keflex] 1,000 mg PO QPM
Abnormal Lab Results
04/04/24 04/05/24 04/05/24
16:46 09:51 09:53
RBC 3.43 L 10^6/uL 3.46 L 10^6/uL
(4.70-6.10) (4.70-6.10)
Hgb 10.3 L g/dL 10.3 L g/dL
(13.0-18.0) (13.0-18.0)
Hct 29.5 L % 30.2 L %
(39.0-52.0) (39.0-52.0)
RDW 14.9 H % 15.1 H %
(11.5-14.5) (11.5-14.5)
Abs Immat Gran (auto) 0.1 H 10^3/uL
(0-0.05)
Absolute Monos (auto) 0.8 H 10^3/uL
(0.1-0.6)
Immature Gran % 0.7 H %
(0-0.5)
Lymphocytes % 14.6 L %
(20.5-51.1)
PT 15.8 H Sec
(11.4-14.6)
Sodium 132 L mmol/L 130 L mmol/L
(135-145) (135-145)
Chloride 95 L mmol/L 92 L mmol/L
(98-107) (98-107)
BUN 50 H mg/dl 58 H mg/dl
(9-20) (9-20)
Creatinine 6.5 H* mg/dL 7.7 H* mg/dL
(0.7-1.3) (0.7-1.3)
Glucose 108 H mg/dl 105 H mg/dl
(70-99) (70-99)
Hemoglobin A1c 6.8 H %
(4.0-5.6)
Alkaline Phosphatase 154 H U/L
(38-126)
POC Glucose 106 H mg/dl
(70-99)
04/05/24
14:43
RBC
Hgb
Hct
RDW
Abs Immat Gran (auto)
Absolute Monos (auto)
Immature Gran %
Lymphocytes %
PT
Sodium
Chloride
BUN
Creatinine
Glucose
Hemoglobin A1c
Alkaline Phosphatase
POC Glucose 111 H mg/dl
(70-99)
04/05/24 09:53
04/05/24 09:53
Vital Signs
Initial and Last Documented VS:
Initial Vital Signs
Temp Pulse Resp BP Pulse Ox
97.9 F 76 18 193/88 99
04/04/24 07:52 04/04/24 07:52 04/04/24 07:52 04/04/24 07:52 04/04/24 07:52
Last Documented Vital Signs
Temp Pulse Resp BP Pulse Ox
97.8 F 64 16 144/86 97
04/05/24 15:25 04/05/24 15:25 04/05/24 15:25 04/05/24 18:10 04/05/24 15:25
*Critical Care Note
Total Time (30-74mins, 75-104mins- exclusive of procedures): Not Applicable
Update Note
Update Note:
Care of patient was transitioned pending IR evaluation for dialysis catheter. IR indicates that they are no longer able to perform the procedure today. They are requesting admission so they can do it tomorrow morning
ED Attending Note
-
Portions of this chart may have been created with voice recognition software.� Occasional wrong word or��sound alike� substitutions may have occurred due to the inherent limitations of voice recognition software.
Discharge Plan
Departure
Patient Disposition: Admit
Date of Disposition: 04/04/24
Time of Disposition: 16:36
Presentation/result/management discussed w/ accepting MD/DO: Hospitalist
Discharge Problem:
Hematoma right arm, Near AV fistula site, History of renal failure
Interventions
Interventions:
*Risk Screen - Suicide Last Done: 04/04/24 20:16
*General Assessment Last Done: 04/04/24 07:52
*Neglect/Abuse Screening Last Done: 04/04/24 07:52
ED- Fall Risk Assessment Last Done: 04/04/24 09:53
*ED COVID-19 Vaccine History Last Done: 04/04/24 20:16
*Nursing Disposition Last Done: 04/04/24 18:48
ED-Skin Assessment Last Done: 04/04/24 09:00
Discharge Date and Time
Discharge Date/Time: 04/04/24 19:00
--- NOTE | 2024-04-04 16:40 | HPS.HSE ---
Addendum entered and electronically signed by Bayron Bradshaw MD 04/04/24 17:34:
I saw and examined the patient.
The [employer] or PA's note was reviewed and I agree with the note.
Comment: 5-year-old male who presents with a chief complaint of swelling at his right upper extremity AV fistula site.
186/87, 74, 18, 97.9 �F, 96% on room air
Gen: NAD, AAOx3.
Eyes: EOMI, PERRLA, no scleral icterus.
Neck: supple.
CV: RRR, +S1/S2, no m/r/g.
Resp: CTAB, no rales, wheezes, or rhonchi.
Skin: No rashes. Just lateral to the right upper extremity fistula site is ecchymoses with firm tissue consistent with underlying hematoma
Neuro: CN 2-12 intact, non-focal.
Psych: Normal mood and affect.
Lab Results
04/04/24
16:46
WBC 8.8
RBC 3.43 L
Hgb 10.3 L
Hct 29.5 L
MCV 86.0
MCH 30.0
MCHC 34.9
RDW 14.9 H
Plt Count 245
MPV 9.0
Abs Immat Gran (auto) 0.1 H
Absolute Neuts (auto) 6.4
Absolute Lymphs (auto) 1.3
Absolute Monos (auto) 0.8 H
Absolute Eos (auto) 0.3
Absolute Basos (auto) 0.1
Immature Gran % 0.7 H
Neutrophils % 72.2
Lymphocytes % 14.6 L
Monocytes % 8.6
Eosinophils % 3.1
Basophils % 0.8
Nucleated RBC % 0
Sodium 132 L
Potassium 3.9
Chloride 95 L
Carbon Dioxide 28
BUN 50 H
Creatinine 6.5 H*
Estimated Creat Clear 15
eGFR 9.12
Glucose 108 H
Calcium 8.6
Total Bilirubin 0.9
AST 46
ALT 41
Alkaline Phosphatase 154 H
Total Protein 6.7
Albumin 4.0
Hemodialysis access duplex [place]: Patent right upper extremity arteriovenous graft with velocities and flow volumes as above. Outflow vein stenosis with velocity 475 cm/s. Probable hematoma adjacent graft measuring up to 5 cm in diameter.
AV fistula hematoma:
-Patient being admitted for tunneled hemodialysis catheter placement so that the AV fistula can rest
-Vascular surgery saw the patient in the ER
-Consult nephrology
Essential hypertension:
-Patient did not take his antihypertensive medications today
-Continue Norvasc/Coreg/hydralazine/torsemide (will receive a dose today)
Original Note:
Family Physician
-
Family Physician: AVA Liriano
Chief Complaint
-
dialysis site swelling, redness
History of Present Illness
59 year old with PMH for ESRD on dialysis, DM, HTN, PVD presented to us with clogged dialysis cath. patient had resection of right upper arm aneurysmal AV fistula and revision of right UA AV fistula with interposition graft last Monday. patient was
able to get dialysis last week with no difficulty. today as he was getting dialyzed it got swollen, red and painful. patient was only able to get 30mis of dialysis. patient denied CARBALLO,dizzy or syncopal episode. denied fever, chills, chest pain, sob.
denied abdominal pain,n,v,d. denied dysuria or hematuria.
US with the impression of Patent right upper extremity arteriovenous graft with velocities and flow volumes as above. Outflow vein stenosis with velocity 475 cm/s. Probable hematoma adjacent graft measuring up to 5 cm in diameter.
admitting for further mangment.
Medical History
Past Medical History
Past Medical History: Reports Other
Additional Past Medical History:
End-stage renal disease
Hypertension
Diabetes
TIA
Peripheral vascular disease
Past Surgical History: Reports Other
Additional Past Surgical History:
Fistulogram
Bilateral cataract surgery
Toe amputation
Gallbladder removal
Right SFA angioplasty
Right brachiocephalic fistula
Social History
Tobacco: Former Smoker
Alcohol: None
Drug: None
Family History
Family History: Not pertinent
Allergies / Home Medications
Allergies reflects when Allergies were last updated in [facility].
Home Medications with original date entered in [facility]
Allergy/Medication List:
Allergies
Allergy/AdvReac Type Severity Reaction Status Date / Time
No Known Allergies Allergy Verified 04/04/24 07:52
Home Medications
amlodipine 10 mg tablet 10 mg PO DAILY Blood Pressure 03/20/24
apixaban 5 mg tablet (Eliquis) 5 mg PO BID Blood Clot Prevention/Tx 03/20/24
carvedilol 25 mg tablet 25 mg PO BID Blood Pressure 03/20/24
cholecalciferol (vitamin D3) 50 mcg (2,000 unit) tablet (Vitamin D3) 50 mcg PO DAILY Supplement 03/20/24
clopidogrel 75 mg tablet 75 mg PO DAILY Blood Clot Prevention/Tx 03/20/24
glipizide 5 mg tablet, extended release 24 hr 5 mg PO DAILY Diabetes 03/20/24
hydralazine 25 mg tablet 25 mg PO BID HTN 03/20/24
melatonin 10 mg tablet 15 - 20 mg PO HS insomnia 03/20/24
sevelamer carbonate 800 mg tablet 1,600 mg PO PRN PRN snacks 03/20/24
sevelamer carbonate 800 mg tablet 3,200 - 4,000 mg PO MEALS hyperphosphatemia 03/20/24
torsemide 20 mg tablet 60 mg PO BID Fluid Retention/Swelling 03/20/24
citalopram 40 mg tablet 40 mg PO DAILY 04/04/24
Review of Systems
-
Constitutional: Reports No Symptoms
EENT: Reports No Symptoms
Respiratory: Reports No Symptoms
Cardiac: Reports No Symptoms
Abdomen/GI: Reports No Symptoms
: Reports No Symptoms
Musculoskeletal: Reports No Symptoms and Other (right arm swelling, redness)
Skin: Reports No Symptoms
Neurological: Reports No Symptoms
Endocrine: Reports No Symptoms
Hematologic/Lymphatic: Reports No Symptoms
Psych: Reports No Symptoms
Physical Exam
Vital Signs
Vital Signs
Temp Pulse Resp BP Pulse Ox
97.9 F 74 18 186/87 96
04/04/24 07:52 04/04/24 14:40 04/04/24 14:40 04/04/24 14:40 04/04/24 14:40
Physical Exam
General: Well Developed, Well Nourished and No Apparent Distress
HEENT: NormoCephalic, Moist mucous membranes and Atraumatic
Respiratory: Clear
Cardiac: S1/S2 and Regular Rhythm; No Murmur or Rub
GI: Soft, Non Tender, Non Distended and Normal Bowel Sounds; No Organomegaly
Rectal: Deferred by Provider
Musculoskeletal: No Clubbing, No Cyanosis and Other (right arm with redness and swelling)
Skin: No Rash
Neuro: AO x 3 and Nonfocal/grossly intact
Psych: Calm
Data Reviewed
-
Ultrasound: Report Reviewed by me
Lab Data: Labs Reviewed by me
Impression/Plan
-
#hematoma of the fistula
-IR consulted for dialysis cath placement
-US of AV graft with Patent right upper extremity arteriovenous graft with velocities and flow volumes as above. Outflow vein stenosis with velocity 475 cm/s. Probable hematoma adjacent graft measuring up to 5 cm in diameter.
-as per vascular surgeon, recommended resting of AV graft, once the swelling is reduced in the arm, possible fistulogram to angioplasty any outflow vein stenosis and then graft can be accessed
#ESRD on dialysis
-Mon, , Monday
-Renagel continued
-nephrology consulted
#essential htn
-BP elevated in ER
-gave his morning dose of Norvasc and Coreg
-Norvasc, Coreg,hydralazine continued with hold parameter
-torsemide continued
#depression/anxiety
-citalopram continued
#hxt of PVD/Right SFA angioplasty
-Plavix continued
#hxt of DVT
-hold eliquis
#type 2 DM
-sliding scale
-glipizide continued
#DVT prophylaxis
-scd
#CODE status
-full code
[2024-04-04] MEDS: DILAUDID 1 MG IV (16:47)
[2024-04-04] MEDS: ZOFRAN 4 MG IV (16:47)
[2024-04-04 16:59] LABS: % Basophils 0.8 % (0-2); % Eosinophils 3.1 % (0-6); % Immature Granulocytes 0.7 % (0-0.5); % Lymphocytes 14.6 % (20.5-51.1); % Monocytes 8.6 % (1.7-9.3); % Neutrophils 72.2 % (42.2-75.2); Absolute Basophils 0.1 10^3/uL (0-0.2); Absolute Eosinophils 0.3 10^3/uL (0-0.7); Absolute Immature Granulocytes 0.1 10^3/uL (0-0.05); Absolute Lymphocytes 1.3 10^3/uL (1.2-3.4); Absolute Monocytes 0.8 10^3/uL (0.1-0.6); Absolute Neutrophils 6.4 10^3/uL (1.4-6.5); Hematocrit 29.5 % (39.0-52.0); Hemoglobin 10.3 g/dL (13.0-18.0); Mean Corp Hgb Conc. 34.9 g/dL (33.0-37.0); Nucleated Red Blood Cells % 0 % (-); Platelet Count 245 10^3/uL (130-400); Red Blood Cell Count 3.43 10^6/uL (4.70-6.10); Red Cell Dist. Width 14.9 % (11.5-14.5); White Blood Cell Count 8.8 10^3/uL (4.8-10.8)
--- NOTE | 2024-04-04 17:07 | W.CON.NEPH ---
Consultation
-
Date/Time Consultation Requested: 04/04/2024 5:00 PM
Date/Time Consultation Performed: 04/04/2024 5:00 PM
Requesting Provider: Dr. Bradshaw
Performing Provider: Dr. Dahl
Reason for Consultation: End-stage renal disease
Medical History
-
Chief Complaint: ESRD
History of Present Illness:
Patient is a 59-year-old male with a past medical history of end-stage renal disease who dialyzes Monday and Saturdays at [facility] [place]. He has been on dialysis for 7 years in the setting of his diabetic nephropathy. His dry
weight is 115.5 kg and states that he often goes UF's as high as 4-1/2 kg. His right upper extremity AV fistula has been operational for 7 years. He has a history of diabetes and is maintained on glipizide. His diabetes complications include
neuropathy retinopathy and nephropathy. He is maintained on sevelamer for his hyperphosphatemia and his hypertension has been managed on the combination of hydralazine carvedilol and amlodipine. He presented to the hospital for elective resection
of an aneurysmal AV fistula with interposition of AV graft last week. The procedure was successfully performed and we did dialysis on him this past Monday successfully through the hybrid fistula graft and he was discharged. He notes today at HD
RN had difficulty cannulating, but were able to do so and started dialysis. However his arm started swelling up. Dialysis was stopped and sent to the emergency room. He states session lasted about 30 minutes. Patient notes some discomfort and
swelling since the dialysis. No severe pain in the hand. No weakness or coolness. Graft with palpable pulse/pulsatility/thrill. Patient per vascular is to rest access and will have tunneled catheter placed tomorrow by IR. We were consulted for
end-stage renal disease management.
Past Medical History
ESRD x 7 years due to diabetic nephropathy
Hypertension
History of DVT
Cholecystectomy
Depression
Diabetes
Hyperphosphatemia
TIA
Right upper extremity AV fistula
Social History
Tobacco: Former Smoker
Alcohol: None
Drug: None
Personal:
Family History
no CKD
Allergies / Home Medications
Allergy/AdvReac Type Severity Reaction Status Date / Time
No Known Allergies Allergy Verified 04/04/24 07:52
�Medication �Instructions �Recorded �Confirmed �Type
amlodipine 10 mg tablet 10 mg PO DAILY Blood Pressure 03/20/24 04/04/24 History
apixaban 5 mg tablet (Eliquis) 5 mg PO BID Blood Clot 03/20/24 04/04/24 History
Prevention/Tx
carvedilol 25 mg tablet 25 mg PO BID Blood Pressure 03/20/24 04/04/24 History
cholecalciferol (vitamin D3) 50 50 mcg PO DAILY Supplement 03/20/24 04/04/24 History
mcg (2,000 unit) tablet (Vitamin
D3)
clopidogrel 75 mg tablet 75 mg PO DAILY Blood Clot 03/20/24 04/04/24 History
Prevention/Tx
glipizide 5 mg tablet, extended 5 mg PO DAILY Diabetes 03/20/24 04/04/24 History
release 24 hr
hydralazine 25 mg tablet 25 mg PO BID HTN 03/20/24 04/04/24 History
melatonin 10 mg tablet 15 - 20 mg PO HS insomnia 03/20/24 04/04/24 History
sevelamer carbonate 800 mg tablet 1,600 mg PO PRN PRN snacks 03/20/24 04/04/24 History
sevelamer carbonate 800 mg tablet 3,200 - 4,000 mg PO MEALS 03/20/24 04/04/24 History
hyperphosphatemia
torsemide 20 mg tablet 60 mg PO BID Fluid 03/20/24 04/04/24 History
Retention/Swelling
citalopram 40 mg tablet 40 mg PO DAILY 04/04/24 04/04/24 History
Review of Systems
-
History Source: Patient
All other systems: Negative unless noted
Hematologic/Lymphatic: Other (Right upper extremity AV fistula/graft with edema and pain)
Physical Exam
Vital Signs
Vital Signs
Temp Pulse Resp BP Pulse Ox
97.9 F 74 18 186/87 96
04/04/24 07:52 04/04/24 14:40 04/04/24 14:40 04/04/24 14:40 04/04/24 14:40
Lab Results
04/04/24 16:46
WBC 8.8 10^3/uL (4.8-10.8) 04/04/24 16:46
RBC 3.43 10^6/uL (4.70-6.10) L 04/04/24 16:46
Hgb 10.3 g/dL (13.0-18.0) L 04/04/24 16:46
Hct 29.5 % (39.0-52.0) L 04/04/24 16:46
Plt Count 245 10^3/uL (130-400) 04/04/24 16:46
Physical Exam
General: AOx3, Nontoxic , NAD,obese
HEENT: PERRL, EOMI, Anicteric, Conjunctivae Clear, Ear/Nose Intact, Hearing Normal, Oropharynx Clear/Moist, Dentition impaired, Facial Symmetry, Neck Supple, Neck: Trachea Midline, No JVD and No Thyromegaly, no Bruits
Respiratory: Clear to auscultation bilaterally with normal lung exersion
Cardiac: S1/S2 and Regular Rate/Rhythm
Breast: Deferred by me
Abdomen: Soft, Nontender, Nondistended, Normal Bowel Sounds and No Hepatosplenomegaly
Rectal: Deferred by Provider
Genito-urinary: No Costovertebral Tenderness
Extremities: No Clubbing, No Cyanosis and No Edema
Skin: No Rash or open lesions
Neuro: Nonfocal/Grossly Intact, CN II-XII (Intact), some neurosensory deficits on the plantar aspects of the feet and Strength (Musculoskeletal exam 5 out of 5 both upper and lower extremities)
Hematologic/Lymphatic: No Cervical Lymphadenopathy, No Submandibular Lymphadenopathy and No Supraclavicular Lymphadenopathy
Psych: Mood/affect pleasant, Insight/judgement good and Appropriate
Vascular: plus 1 pedal and radial pulses
Vascular Access: AVF (Right upper extremity AV fistula/graft : Noted thrill and bruit palpable hematoma along lateral aspect of graft with fullness and some tenderness
Data Reviewed
-
Radiology: Report Reviewed by me (Duplex report reviewed per vascular report)
Labs: Labs Reviewed by me (BMP CBC)
Old Records: Reviewed (Reviewed nephrology consultation from 03/29/24: consult)
Assessment/Plan
-
Impression:
ESRD
Status post revision of AV fistula aneurysm with graft placement interposition: now with hematoma
Hypertension
Hyperphosphatemia
Diabetes
History of TIA
History of DVT on chronic anticoagulation
Plan:
Tunneled dialysis catheter to be placed tomorrow
AV fistula graft to be rested for a few weeks
Dialysis orders provided
Hypertension management will continue on current antihypertensives
Maintain sevelamer with meals in setting of hyperphosphatemia
Appropriate dietary and fluid restrictions ordered for ESRD
[2024-04-04 17:17] LABS: ALT (SGPT) 41 U/L (0-50); AST (SGOT) 46 U/L (17-59); Alkaline Phosphatase 154 U/L (38-126); Blood Urea Nitrogen 50 mg/dl (9-20); Calcium 8.6 mg/dl (8.4-10.2); Carbon Dioxide 28 mmol/L (22-30); Chloride 95 mmol/L (98-107); Estimated Creatinine Clearance 15 ml/min; Glucose 108 mg/dl (70-99); Potassium 3.9 mmol/L (3.5-5.1); Sodium 132 mmol/L (135-145); Total Bilirubin 0.9 mg/dl (0.2-1.3); Total Protein 6.7 g/dl (6.3-8.2); eGFR 9.12
[2024-04-04 18:00] VITALS: BP 158/73
[2024-04-04] MEDS: NORVASC 10 MG PO (18:02)
[2024-04-04] MEDS: COREG 25 MG PO (18:02)
[2024-04-04 18:19] LABS: INR 1.26; PT 15.8 Sec (11.4-14.6)
[2024-04-04 18:20] LABS: APTT 31.9 Sec (23.4-35.0)
[2024-04-04 19:07] VITALS: BP 168/84
[2024-04-04 20:28] VITALS: BMI 41.5
[2024-04-04] MEDS: APRESOLINE 25 MG PO (20:44)
[2024-04-04] MEDS: DEMADEX 60 MG PO (20:45)
[2024-04-04] MEDS: MELATONIN 15 MG PO (22:02)
[2024-04-04 23:00] VITALS: BP 135/70
[2024-04-05] MEDS: TYLENOL 650 MG PO (03:09)
[2024-04-05 07:40] VITALS: BP 160/80
--- NOTE | 2024-04-05 07:54 | W.PN.HOSP.TC ---
Addendum entered and electronically signed by Bayron Bradshaw MD 04/05/24 13:43:
Total time spent on d/c = 31 min. This included today's physical exam, progress note, review of laboratory and diagnostic data, preparation of discharge documents and prescriptions, and discussions about the pt's hospital course and discharge plan
with the patient and other medical care administrator involved in the patient's care.
Original Note:
Today's Communication/Plan
-
see bold
Assessment / Plan
Assessment / Plan
Gen: remains NAD, AAOx3.
Eyes: EOMI, PERRLA, no scleral icterus.
Neck: supple.
CV: remains RRR, +S1/S2, no m/r/g.
Resp: remains CTAB, no rales, wheezes, or rhonchi.
Skin: No rashes. Just lateral to the right upper extremity fistula site is ecchymoses with firm tissue consistent with underlying hematoma
Neuro: CN 2-12 intact, non-focal.
Psych: moderately agitated
Hemodialysis access duplex U/S: Patent right upper extremity arteriovenous graft with velocities and flow volumes as above. Outflow vein stenosis with velocity 475 cm/s. Probable hematoma adjacent graft measuring up to 5 cm in diameter.
AV fistula hematoma:
-Patient was admitted for tunneled hemodialysis catheter placement so that the AV fistula can rest
-Vascular surgery saw the patient in the ER
-nephrology following for ESRD
Essential hypertension:
-Patient did not take his antihypertensive medications on the day of admission
-Continue Norvasc/Coreg/hydralazine/torsemide
DM2:
-SSI/accuchecks
-cont glipizide
-check a1c
Morbid Obesity due to excess calories:
-encourage wt loss
-affects all aspects of care
Other problems:
Depression/anxiety: cont Celexa
h/o PAD/Right SFA angioplasty: cont Plavix
h/o DVT: remote hx, holding Eliquis
Hyponatremia
FULL/SCDs
Anticipated Discharge: Within 24 hours
Subjective/Interval History
-
Date of Service: April 05, 2024
Pt is very angry that he is NPO. Offers no other acute complaints.
Objective Data
-
Labs:
Laboratory Results
04/05/24 04/05/24
06:00 07:00
WBC Pending
Hgb Pending
Hct Pending
Plt Count Pending
Sodium Pending
Potassium Pending
Chloride Pending
Carbon Dioxide Pending
BUN Pending
Creatinine Pending
Glucose Pending
Calcium Pending
Vital Signs:
Vital Signs
Temp Pulse Resp BP Pulse Ox
97.9 F 59 18 135/70 94
04/04/24 23:00 04/04/24 23:00 04/04/24 23:00 04/04/24 23:00 04/04/24 23:00
[2024-04-05 09:16] VITALS: BMI 40.7
[2024-04-05] MEDS: DEMADEX 60 MG PO ×2 (09:33→18:10)
[2024-04-05] MEDS: CELEXA 40 MG PO (09:33)
[2024-04-05] MEDS: COREG 25 MG PO (09:34)
[2024-04-05] MEDS: APRESOLINE 25 MG PO (09:34)
[2024-04-05] MEDS: PLAVIX 75 MG PO (09:34)
[2024-04-05 09:53] LABS: Glucose - Point of Care 106 mg/dl (70-99)
--- NOTE | 2024-04-05 09:59 | PTCARENOTE ---
pt aaox3 within the room and is NPO for tunneled cath placement this afternoon. states hes not letting us check his sugars because 'no one is doing anything for him why should he'. i educated on this risks of not letting us check. phlebotomy unable
to obtain labs this morning but was just successful. labs pending. blood sample for glucose check obtained prior to lab draw. sugar 106. proper charting in MAR at this time. pt states hes not following a 2000DD here and that if his comes prior
to his procedure with food 'he does not care and he is eating. he has skipped dialysis before he could go until monday and not have it done'. this nurse educated on risks of not having catheter placed and the risks of not having HD. pt states he
just does not care he is hungry. made aware.
[2024-04-05] MEDS: NORVASC 10 MG PO (10:45)
[2024-04-05 11:30] VITALS: BP 147/65; BP_SYST 63
[2024-04-05] MEDS: ANCEF 10 IV (11:33)
[2024-04-05 11:42] LABS: Glycohemoglobin (HgbA1c) 6.8 % (4.0-5.6)
[2024-04-05 11:48] LABS: Blood Urea Nitrogen 58 mg/dl (9-20); Calcium 8.4 mg/dl (8.4-10.2); Carbon Dioxide 26 mmol/L (22-30); Chloride 92 mmol/L (98-107); Estimated Creatinine Clearance 13 ml/min; Glucose 105 mg/dl (70-99); Potassium 4.5 mmol/L (3.5-5.1); Sodium 130 mmol/L (135-145); eGFR 7.44
[2024-04-05 11:59] LABS: Hematocrit 30.2 % (39.0-52.0); Hemoglobin 10.3 g/dL (13.0-18.0); Mean Corp Hgb Conc. 34.1 g/dL (33.0-37.0); Mean Corpuscular Hgb 29.8 pg (27.0-31.0); Mean Corpuscular Volume 87.3 fL (80.0-94.0); Mean Platelet Volume 9.7 fL (7.4-10.4); Platelet Count 264 10^3/uL (130-400); Red Blood Cell Count 3.46 10^6/uL (4.70-6.10); Red Cell Dist. Width 15.1 % (11.5-14.5)
--- NOTE | 2024-04-05 11:59 | W.PN.VS ---
Today's Communication / Plan
-
*CECELIA Dressings / Soft-Compression dressings
*Initiation ABX due to recent graft-placement
Assessment/Plan
-
ASSESSMENT:
59 yo Male POD#7 s/p - Resection and revision of AV fistula with interposition graft ([place] AcuSeal) for Aneurysmal AV fistula.
PLAN:
Out of bed to chair/ambulate
CECELIA Dressings / Soft-Compression dressings
Initiation ABX due to recent graft-placement
Appreciate Nephro Recommendations for HD Catheter
Continue to rest Av-Graft
Will Re-Evaluate in the Outpt. setting
-
Total Time Spent with Patient (in minutes): ~10 Min
Subjective Data
-
Date of Service: April 05, 2024
Pt was seen and evaluated at bedside this morning with attending physician.
No acute events O/N
Pt stated he feels-well / No complains this morning
Pain under control
Denies any N/V, UE Poikilothermia, numbness or paleness
Objective Data
-
Vital Signs
Temp Pulse Resp BP Pulse Ox
36.7 C 63 16 147/65 95
04/05/24 11:30 04/05/24 11:30 04/05/24 11:30 04/05/24 11:30 04/05/24 11:30
Intake and Output
04/04/24 04/05/24 04/06/24
06:59 06:59 06:59
Other:
Number of approximated MODERATE 2
amounts of urine
Lab Results
04/05/24 09:53
Calcium 8.4 mg/dl (8.4-10.2) 04/05/24 09:53
Total Bilirubin 0.9 mg/dl (0.2-1.3) 04/04/24 16:46
AST 46 U/L (17-59) 04/04/24 16:46
ALT 41 U/L (0-50) 04/04/24 16:46
Alkaline Phosphatase 154 U/L (38-126) H 04/04/24 16:46
Total Protein 6.7 g/dl (6.3-8.2) 04/04/24 16:46
Albumin 4.0 g/dl (3.5-5.0) 04/04/24 16:46
Physical Exam
-
VITALS:
STABLE
PE:
Comfortably sitting at the side of the bed this morning.
GEN- AAOx3 / In NAD / Hemodynamically stable
HEENT- EOMI
MSK- UE pulses + bilaterally / No paleness / No Poikilothermia
+ Palpable Thrill on AV Fistula of the UE
Incisions- CDI / Sutures in place / Mild Erythema and Drainage
[2024-04-05 13:12] VITALS: BP 147/78
[2024-04-05 13:20] LABS: Hepatitis C Antibody Negative (Negative)
--- NOTE | 2024-04-05 14:13 | W.DCSUMMARY ---
Discharge Summary
Discharge Data
Date of Admission: 04/04/24
Date of Discharge: 04/05/24
-
Pending Results: No
Hospital Course
Primary diagnoses:
Grecia-AV fistula hematoma
Secondary diagnoses:
Recent right upper extremity aneurysmal fistula revision with interposition early access AcuSeal graft
Essential hypertension
Type 2 diabetes mellitus
Morbid Obesity due to excess calories
Depression
Anxiety
h/o peripheral arterial disease s/p right superficial femoral artery angioplasty
Remote h/o deep vein thrombosis
Hyponatremia
Consults:
Vascular surgery
Interventional radiology
Nephrology
Imaging:
Hemodialysis access duplex U/S: Patent right upper extremity arteriovenous graft with velocities and flow volumes as above. Outflow vein stenosis with velocity 475 cm/s. Probable hematoma adjacent graft measuring up to 5 cm in diameter.
Hospital course: 59-year-old male who presented yesterday with a grecia-AV fistula hematoma is out and things to be done admission. He was brought into the hospital so that he could have a tunneled hemodialysis catheter placement. Interventional
radiology placed a tunneled hemodialysis catheter on April 05, 2024. The patient is to have make up dialysis on the day of discharge and will be discharged in medically stable condition.
Discharge Plan
-
Patient Disposition: Home (Routine Discharge)
Discharge Diagnosis/Procedures: Hematoma adjacent to AV fistula requiring hemodialysis catheter placement
Condition: Good
Diet: Diabetic, Carb Controlled
Activity: Other activity
Additional Activity: as per IR and vascular surgery's recs, no heavy lifting
Driving Restrictions: Not until seen by your Dr
Bathing Restrictions: None
Wound Care: The white CECELIA dressing on your right arm can be peeled off and removed on 04/11. You may throw the dressing and battery pack away.
Until removal you may disconnect at hub closest to your body to shower and re-connect after shower
The battery pack will vibrate and blink different colors, this is normal.
If the dressing becomes saturated or peels away before removal date that is ok, you may remove it at that time.
After removal if you would like to cover the site with gauze you may, change this daily. You also may leave open to air.
DO NOT SOAK incision. Showering is fine but no standing water(tub/pool).
Keep this incision as dry as you can when not showering.
Can wear xuan wrap on arm with mild compression daily, can take off at night and when showering.
Referrals:
Stephani Alonzo CRNP [Family Provider] - in less than 1 week
Edie Recio CRNP [Specified Professional Personl] - 04/10/24 9:45 am
Prescriptions:
New
cephalexin 500 mg Capsule
1,000 mg PO QPM Qty: 14 0RF
Continued
carvedilol 25 mg Tablet
25 mg PO BID
torsemide 20 mg Tablet
60 mg PO BID
glipizide 5 mg Tablet Extended Release 24hr
5 mg PO DAILY
hydralazine 25 mg Tablet
25 mg PO BID
Rx Instructions:
SBP>135
clopidogrel 75 mg Tablet
75 mg PO DAILY
amlodipine 10 mg Tablet
10 mg PO DAILY
sevelamer carbonate 800 mg Tablet
3,200 - 4,000 mg PO MEALS
Rx Instructions:
w/ meals
sevelamer carbonate 800 mg Tablet
1,600 mg PO PRN PRN (Reason: snacks)
Rx Instructions:
w/ snacks
cholecalciferol (vitamin D3) [Vitamin D3] 50 mcg (2,000 unit) Tablet
50 mcg PO DAILY
Eliquis 5 mg Tablet
5 mg PO BID
melatonin 10 mg Tablet
15 - 20 mg PO HS
citalopram 40 mg tablet
40 mg PO DAILY
Discharge Orders:
Discharge Patient (As Directed); Ordered 04/05/24
Ordered By: Bayron Bradshaw
Discharge Date and Time
Print Language: JAMA[place]
[2024-04-05 14:45] LABS: Glucose - Point of Care 111 mg/dl (70-99)
[2024-04-05 15:25] VITALS: BP 144/86
--- NOTE | 2024-04-05 15:26 | W.PN.NEPH.HD ---
Assessment
-
Seen on HD. CVC in place. VSS, c/o hunger. demands regular diet because he hasn't eaten for 3 days.
Progress Note - Hemodialysis
-
Date of Service: April 05, 2024
Duration: 30 minutes and 3 hours
Potassium Bath: 2
Calcium Bath: 2.5
Opti-Dialyzer: 160
Ultrafiltration: Other
Blood Flow: 400
Dialysate Flow: 600
Heparin: no
EPO: 4000 units
[2024-04-05] MEDS: RETACRIT 4000 UNITS IV (16:15)
--- NOTE | 2024-04-05 16:46 | CM ---
Reviewed chart, met with patient and his who was at bedside to obtain information for assessment. Patient lives with his in a one floor apartment with no steps to enter. He is independent with his ADLs, personal care, dressing and bathing.
His does all the laundry, user support analyst supervisor, cooking and cleaning. She can transport him to his appointments and does all the shopping. He uses a can to assist with his ambulation but denied any other DME.
Patient goes to [facility] Mon, , Monday at 6am. He has a social group worker there who he likes and she has been very helpful.
Patient has not had VN services.
He has not been to a SNF in the past.
Patient has a prescription plan and uses [facility] in [place].
His PCP is, Stephani Arrieta.
OBS letter provided and signed.
Patient stated that he wants to return home with his and is medically cleared.
Plan: Case management will continue to follow and assist with discharge planning. Home.
[2024-04-05] MEDS: HEPARIN 4300 UNITS INTRACATH (17:43)
[2024-04-05] MEDS: KEFLEX 1000 MG PO (18:10)
== END 2024-04-05 18:33 | disposition home or self-care (01) ==
LOC: SDS 17:26
PROVIDERS: Registered Nurse; Student in an Organized Health Care Education/Training Program; ATTENDING PHYSICIAN Internal Medicine; CONSULT PHYSICIAN Specialist; CONSULT PHYSICIAN Surgery Vascular Surgery; EMERGENCY PHYSICIAN Emergency Medicine; FAMILY PHYSICIAN Nurse Practitioner Primary Care
DX: T82.838A Hemorrhage due to vascular prosthetic devices, implants and grafts, initial encounter (principal); T82.858A Stenosis of other vascular prosthetic devices, implants and grafts, initial encounter; E11.22 Type 2 diabetes mellitus with diabetic chronic kidney disease; E78.00 Pure hypercholesterolemia, unspecified; I13.2 Hypertensive heart and chronic kidney disease with heart failure and with stage 5 chronic kidney disease, or end stage renal disease; I50.9 Heart failure, unspecified; E66.01 Morbid (severe) obesity due to excess calories; N18.6 End stage renal disease; E11.51 Type 2 diabetes mellitus with diabetic peripheral angiopathy without gangrene; E11.40 Type 2 diabetes mellitus with diabetic neuropathy, unspecified; Y83.2 Surgical operation with anastomosis, bypass or graft as the cause of abnormal reaction of the patient, or of later complication, without mention of misadventure at the time of the procedure; E87.1 Hypo-osmolality and hyponatremia; E11.36 Type 2 diabetes mellitus with diabetic cataract; E83.39 Other disorders of phosphorus metabolism; F41.9 Anxiety disorder, unspecified; F32.A Depression, unspecified; H43.811 Vitreous degeneration, right eye; Z68.41 Body mass index [BMI] 40.0-44.9, adult; Z79.01 Long term (current) use of anticoagulants; Z79.84 Long term (current) use of oral hypoglycemic drugs; Z79.899 Other long term (current) drug therapy; Z86.718 Personal history of other venous thrombosis and embolism; Z86.73 Personal history of transient ischemic attack (TIA), and cerebral infarction without residual deficits; Z87.891 Personal history of nicotine dependence; Z99.2 Dependence on renal dialysis
CPT/HCPCS: 36558; 76937; 77001; 80048; 80053; 82962; 83036; 85025; 85027; 85610; 85730; 86803; 87070; 93990; 96374; 96375; 99152; 99153; 99285; C1750; G0378; Q5106

== ENCOUNTER 2024-05-24 09:06 | Day surgery (SDC) | payer MEDICARE, SELFPAY ==
[2024-05-24] VITALS (8 sets, daily range): BP systolic 107–165; BP diastolic 57–92; BMI 39.6
[2024-05-24 09:57] LABS: Glucose - Point of Care 83 mg/dl (70-99); Hematocrit 34.1 % (39.0-52.0); Hemoglobin 11.8 g/dL (13.0-18.0); Mean Corp Hgb Conc. 34.6 g/dL (33.0-37.0); Mean Corpuscular Hgb 29.9 pg (27.0-31.0); Mean Corpuscular Volume 86.3 fL (80.0-94.0); Mean Platelet Volume 9.2 fL (7.4-10.4); Platelet Count 250 10^3/uL (130-400); Red Blood Cell Count 3.95 10^6/uL (4.70-6.10); Red Cell Dist. Width 13.8 % (11.5-14.5); White Blood Cell Count 6.5 10^3/uL (4.8-10.8)
[2024-05-24 10:03] LABS: INR 1.12; PT 14.3 Sec (11.4-14.6)
[2024-05-24 10:08] LABS: Blood Urea Nitrogen 68 mg/dl (9-20); Calcium 8.8 mg/dl (8.4-10.2); Carbon Dioxide 23 mmol/L (22-30); Chloride 94 mmol/L (98-107); Estimated Creatinine Clearance 14 ml/min; Glucose 87 mg/dl (70-99); Potassium 4.7 mmol/L (3.5-5.1); Sodium 137 mmol/L (135-145); eGFR 8.64
--- NOTE | 2024-05-24 12:19 | PTCARENOTE ---
Lunch relief. Received report from JOE RN. Pt w/o complaints. Will continue to monitor pt.
[2024-05-24 12:52] LABS: Glucose - Point of Care 78 mg/dl (70-99)
--- NOTE | 2024-05-24 14:06 | W.IMMPOSTOP ---
Surgical Immed Post Op Note
-
Primary Surgeon: Issac Ayala III, MD
Assisting Surgeon: Davion Escamilla MD
Pre-op Diagnosis: AV Fistula Outflow Track Obstruction?
Post-op Diagnosis: AV Fistula Outflow Track Obstruction?
Procedure Performed: RUE fistulogram, balloon angioplasty
Anesthesia Type: General
Specimen / Cultures: None
Estimated Blood Loss: 2cc
Complications: None
Operative Findings:
Access to RUE graft obtained via micropuncture needle. Seldinger technique dilated to accommodate a 7Fr sheath. Three areas of stenotic venous segments were dilated with 10x4 and 12x4 balloons. Completion fistulogram demonstrated successful
dilation. Puncture site oversewn with a 4-0, overlaid with 4x4 and tegaderm.
[2024-05-24 14:17] LABS: Glucose - Point of Care 76 mg/dl (70-99)
--- NOTE | 2024-05-24 17:13 | OR.RPT ---
Operative Report
Operative Report
Date of Operation: 05/24/2024
Pre Op Diagnosis: Difficulty with needle cannulation, right upper arm arteriovenous access
Post Op Diagnosis: Difficulty with needle cannulation, right upper arm arteriovenous access
Procedure:
1.) Diagnostic right upper extremity fistulogram
2.) Central venogram
3.) Balloon angioplasty of 2 venous outflow stenoses (10 mm x 40 mm; 12 mm x 40 mm)
4.) Ultrasound guided percutaneous access to the right upper extremity AV access
Surgeon: Issac Ayala III, MD
[place]et Crown Blocking Operator: Davion Escamilla MD PGY-2
Anesthesia: General
Complications: None
History and Indications for Procedure: 59-year-old male with recent revision of aneurysmal right upper extremity AV fistula with AcuSeal graft interposition. There was difficulty with needle cannulation at dialysis and we brought him in for a
fistulogram with possible intervention.
Procedure in Detail: Lukas Orr was correctly identified and placed supine on the operating table. After adequate induction of anesthesia the right arm was positioned, prepped and draped in the usual sterile fashion. Preoperative antibiotics were
administered. A timeout procedure was performed with the nursing and anesthesia staff confirming the patient�s identity as well as the nature and laterality of the procedure.
Intraoperative ultrasound was performed on the AV access.
I identified a puncture site along the proximal graft and infiltrated local anesthesia at this site. Under ultrasound guidance I accessed the graft with a micropuncture needle facing towards the venous outflow and placed the micropuncture sheath. I
performed a fistulogram which demonstrated the following:
Fistulogram: Patent AV fistula. Graft segment patent. 2 areas of high-grade stenosis identified along the venous outflow.
Central venogram: Patent central veins. Mild stenosis at the junction/confluence of the brachiocephalic veins. Existing tunneled dialysis catheter
Endovascular intervention:
Systemic heparin was administered. A short 7 Fr sheath was placed. Under roadmap guidance a glide catheter and Bentson wire were used to cross the venous outflow stenoses. I then used a 10 x 40 mm angioplasty balloon to treat both of the venous
outflow stenoses. The balloon was inflated to nominal pressure at each stenosis. Subsequent images demonstrated improved but suboptimal result. I then used a 12 mm x 40 mm angioplasty balloon to treat both of the venous outflow stenoses. The
balloon was inflated to nominal pressure at each stenosis. While the balloon was inflated we performed a reflux fistulogram which demonstrated a widely patent proximal graft and fistula with reflux across the anastomosis and into the brachial
artery. No stenosis was identified at this location.
Completion fistulogram demonstrated an excellent technical result. The fistula was widely patent with brisk flow. No significant residual stenosis was identified.
At the conclusion of the procedure a Monocryl suture was placed around the sheath puncture site. The sheath was removed and the suture secured. Hemostasis was achieved. Protamine was administered. A sterile dressing was applied.
The patient tolerated the procedure well and was taken to the PACU in stable condition
Attestation: I was present and responsible for the entire procedure
Signed:
Issac Ayala III, MD
[facility]
[phone] (ijlq)
== END 2024-05-24 15:45 | disposition home or self-care (01) ==
LOC: CATH 09:06
PROVIDERS: ATTENDING PHYSICIAN Surgery Vascular Surgery; FAMILY PHYSICIAN Nurse Practitioner Primary Care; OTHER PHYSICIAN Internal Medicine Cardiovascular Disease
DX: I12.0 Hypertensive chronic kidney disease with stage 5 chronic kidney disease or end stage renal disease (principal); E11.22 Type 2 diabetes mellitus with diabetic chronic kidney disease; N18.6 End stage renal disease; Z99.2 Dependence on renal dialysis; Z86.73 Personal history of transient ischemic attack (TIA), and cerebral infarction without residual deficits; Z87.891 Personal history of nicotine dependence; Z79.01 Long term (current) use of anticoagulants; Z79.02 Long term (current) use of antithrombotics/antiplatelets; Z79.84 Long term (current) use of oral hypoglycemic drugs
CPT/HCPCS: 36902; C1894; C1725; C1769; 80048; 82962; 85027; 85610; 85730; Q9967

== ENCOUNTER → 2025-06-25 09:01 | Outpatient (REF) | payer MEDICARE, SELFPAY | LOC: RAD 09:01 | PROVIDERS: ATTENDING PHYSICIAN Physician Assistant; FAMILY PHYSICIAN Nurse Practitioner Primary Care | DX: I73.9 Peripheral vascular disease, unspecified (principal) | CPT/HCPCS: 93922; 93925 ==

== ENCOUNTER → 2025-07-28 06:58 | Outpatient (REF) | payer MEDICARE, SELFPAY | LOC: RAD 06:58 | PROVIDERS: ATTENDING PHYSICIAN Registered Nurse; FAMILY PHYSICIAN Nurse Practitioner Primary Care | DX: I77.9 Disorder of arteries and arterioles, unspecified (principal) | CPT/HCPCS: 75635; Q9967 ==